=== PATIENT | female | born 2000 | race Caucasian/White ===

== ENCOUNTER 2020-10-19 02:15 | Observation (INO) | payer MEDICAID, SELFPAY ==
[2020-10-19 03:31] VITALS: BP 105/62; PULSE 82
[2020-10-19 03:46] VITALS: BP 110/50; PULSE 79
--- NOTE | 2020-10-19 04:54 | LDADM ---
This patient, Jael Douglass, was admitted to Labor/Delivery/Recovery 106 on 10/19/20 at 02:15. Plans for labor, pain management and were discussed with patient. Patient/family oriented to hospital policies and general routines including ID bracelet, bed and alarms, visiting hours, pain management, procedures, bathroom and other care routines, personal items, smoking policy, room service/diet and guest tray routines, security routines, and visiting hours. Patient/Family are encouraged to report perceived risks to care and to ask questions if they do not understand what they are told or what they should do. See OBIX for further documentation.
--- NOTE | 2020-11-08 10:37 | PM.OBTRLD ---
OB - Triage/Final Diagnosis Visit Information Comments/Additional reasons for admission: I have assessed the risk for this patient, Jael Douglass, and determined that she would benefit from observation care. Final Diagnosis (1) False labor: Code(s): O47.9 - False labor, unspecified Status: Acute
== END 2020-10-19 05:07 | disposition home or self-care (01) ==
PROVIDERS: Admitting Provider Obstetrics & Gynecology; Visit Provider Obstetrics & Gynecology
DX: O47.1 False labor at or after 37 completed weeks of gestation (principal); Z3A.38 38 weeks gestation of pregnancy
CPT/HCPCS: G0378; G0379

== ENCOUNTER 2020-10-24 06:00 | Inpatient (IN) | payer MEDICAID, SELFPAY ==
[2020-10-24] VITALS (78 sets, daily range): BP systolic 73–150; BP diastolic 31–86; PULSE 66–204; RESP 16; TEMP 36.4–36.9; O2SAT 91–100
--- NOTE | 2020-10-24 06:00 | LDADM ---
This patient, Jael Douglass, was admitted to Labor/Delivery/Recovery 103 on 10/24/20 at 06:00. Plans for labor, pain management and were discussed with patient. Patient/family oriented to hospital policies and general routines including ID bracelet, bed and alarms, visiting hours, pain management, procedures, bathroom and other care routines, personal items, smoking policy, room service/diet and guest tray routines, infant security routines, and visiting hours. Patient/Family are encouraged to report perceived risks to care and to ask questions if they do not understand what they are told or what they should do. See OBIX for further documentation.
[2020-10-24 07:10] LABS: Basophils Percent Auto 0.2 % (0.2-1.2); Eosinophils Absolute Auto 0.1 K/mm3 (0-0.3); Eosinophils Percent Auto 0.8 % (0-4.4); Hematocrit 35.8 % (37.0-47.0); Hemoglobin 11.8 g/dL (12.0-15.0); Immature Granulocyte Absolute 0.03 K/mm3 (0.00-0.031); Immature Granulocyte Percent A 0.3 % (0-0.5); Lymphocytes Absolute Auto 2.27 K/mm3 (0.9-3.2); Lymphocytes Percent Auto 23.1 % (18.3-44.2); Mean Corpuscular Hemoglobin 28.8 pg (26-34); Mean Corpuscular Volume 87.3 fl (80-100); Mean Platelet Volume 11.7 fl (7.4-10.4); Monocytes Absolute Auto 0.6 K/mm3 (0.1-0.6); Monocytes Percent Auto 5.9 % (2.6-8.5); Neutrophils Absolute Auto 6.8 K/mm3 (1.3-6.7); Neutrophils Percent Auto 69.7 % (45.5-73.1); Platelet Count Result 179 k/mm3 (150-375); Red Cell Distribution Width 14.5 % (11.5-14.5); White Blood Count 9.8 K/mm3 (4.5-10.0)
[2020-10-24] MEDS: OXYTOCIN 30 UNITS/NS 500 ML 30 UNITS/500 ML BAG IV CONT (07:13)
[2020-10-24] MEDS: LACTATED RINGERS 1,000 ML 125 ML IV CONT ×2 (07:14→10:06)
--- NOTE | 2020-10-24 07:26 | WPDOBADMIT ---
Obstetrics - Admit Note Admission Note: record reviewed. No pertinent additions to the history and/or any subsequent changes in the physical findings that are not consistent with the expected course of the were found. EIL SVE /-2/ AROM moderate amount of clear odorless fluid Additions to the history and/or subsequent changes in the physical findings follow. None.
--- NOTE | 2020-10-24 07:29 | P.PNAN_ITS ---
Anes - Eval Pre Procedure Procedure: labor epidural Date/Time: 10/24/20 07:29 Surgeon: ofelia Preop Diagnosis: pain during labor Pre Op Diagnosis: IOL Patient Data Age: 20 Gender: F Height: Weight: Last Vital Signs Pulse 88 10/24/20 07:02 BP 122/70 10/24/20 07:02 Allergies Allergy/AdvReac Type Severity Reaction Status Date / Time latex Allergy Intermediate HIVES,SWELL Verified 12/01/18 14:38 ING ibuprofen Allergy Unknown Hives / Verified 12/01/18 14:38 Red Face Home Medications Medication Instructions Recorded Confirmed Type PNV cmb#95-ferrous fumarate-FA 1 tablet PO DAILY 10/09/20 10/09/20 History [] Laboratory Tests 10/24/20 10/24/20 06:50 06:50 WBC 9.8 K/mm3 K/mm3 (4.5-10.0) RBC 4.10 M/mm3 L M/mm3 (4.2-5.4) Hgb 11.8 g/dL L g/dL (12.0-15.0) Hct 35.8 % L % (37.0-47.0) MCV 87.3 fl fl (80-100) MCH 28.8 pg pg (26-34) MCHC 33.0 g/dl g/dl (32-36) RDW 14.5 % % (11.5-14.5) Plt Count 179 k/mm3 k/mm3 (150-375) MPV 11.7 fl H fl (7.4-10.4) Immature Gran % (Auto) 0.3 % % (0-0.5) Neut % (Auto) 69.7 % % (45.5-73.1) Lymph % (Auto) 23.1 % % (18.3-44.2) [place] % (Auto) 5.9 % % (2.6-8.5) Eos % (Auto) 0.8 % % (0-4.4) Baso % (Auto) 0.2 % % (0.2-1.2) Lymph # (Auto) 2.27 K/mm3 K/mm3 (0.9-3.2) [place] # (Auto) 0.6 K/mm3 K/mm3 (0.1-0.6) Eos # (Auto) 0.1 K/mm3 K/mm3 (0-0.3) Baso # (Auto) 0.0 K/mm3 K/mm3 (0.0-0.1) Abs Immat Gran (auto) 0.03 K/mm3 K/mm3 (0.00-0.031) Absolute Neuts (auto) 6.8 K/mm3 H K/mm3 (1.3-6.7) Absolute Nucleated RBC 0.0 K/mm3 K/mm3 (0.0-0.012) Nucleated RBC % 0.0 % % (0.0-0.2) RPR Pending Patient hx anesthesia problems: none Family hx anesthesia problems: none PMFSH Past Medical History Medical History (Updated 10/24/20 @ 07:30 by Debra Mitchell CRNA) IUP (intrauterine ), incidental Family History Family History Mother Hodgkins lymphoma Social History Social History Smoking status: Former smoker Substance use: never Gender identity (if verbalized by the patient): Female Spiritual care concerns: No Exam Day of Procedure 10/24/20 07:29
[2020-10-24 09:38] LABS: Amphetamine Screen Urine Negative (Negative); Barbiturate Screen Urine Negative (Negative); Benzodiazepines Screen Urine Negative (Negative); Cannabinoid Screen Urine Negative (Negative); Cocaine Screen Urine Negative (Negative); Methadone Screen Urine Negative (Negative); Opiate Screen Urine Negative (Negative); Phencyclidine Screen Urine Negative (Negative)
--- NOTE | 2020-10-24 12:55 | PM.OBPRVD ---
OB - Delivery Note Procedure Delivery date: 10/24/20 Procedure: vaginal delivery Intrapartal events: None Induction method: AROM and per pitocin protocol Delivery monitor: external FHT and external uterine Route of delivery: Laceration Description: Perineal - 1st Degree Quantitative Blood Loss (ml): 201 Anesthesia type: Epidural Disposition: other [place] Baby Date of : 10/24/20 Time of : 12:43 Weeks of gestation at delivery: 39 Infant gender: Male Weight (pounds): 8 Weight (ounces): 1 presentation: vertex position: Left Occiput Anterior Placenta delivery description: Spontaneous cord vessel description: 3 Vessels, Clamped/Cut and Delayed Cord Clamping score one minute: 9 score five minutes: 9 Narrative: mother and baby skin to skin in stable condition
[2020-10-24] MEDS: OXYTOCIN 30 UNITS/NS 500 ML 30 UNITS/500 ML BAG 125 UNITS IV CONT (12:58)
--- NOTE | 2020-10-24 15:20 | OBPPTRN ---
Patient transferred to post room #284 via wheelchair. Support person present. Oriented to unit, room, information board, rooming in, admission packet and security measures. Patient verbalizes understanding.
[2020-10-24] MEDS: ACETAMINOPHEN 325 MG TABLET 650 MG PO (21:56)
[2020-10-25] MEDS: ACETAMINOPHEN 325 MG TABLET 650 MG PO ×2 (05:14→12:46)
[2020-10-25 05:15] VITALS: BP 100/71; PULSE 79; RESP 16; TEMP 36.2; O2SAT 100
[2020-10-25 05:45] LABS: Hematocrit 35.9 % (37.0-47.0); Hemoglobin 11.6 g/dL (12.0-15.0)
--- NOTE | 2020-10-25 07:18 | PM.OBPNVD ---
OB - PN: Subj Subjective Date/time seen: 10/25/20 07:18 Patient comments: no complaints baby status: doing well OB - PN: Obj Data Labs CBC & Chem 7: 10/25/20 05:20 Labs: Laboratory Results - last 24 hr 10/24/20 10/24/20 10/25/20 06:50 08:54 05:20 Hgb 11.6 L Hct 35.9 L Urine Opiates Screen Negative Urine Methadone Screen Negative Ur Barbiturates Screen Negative Ur Phencyclidine Scrn Negative Ur Amphetamine Screen Negative U Benzodiazepines Scrn Negative Urine Cocaine Screen Negative U Cannabinoids Screen Negative Blood Type O Positive Antibody Screen Negative OB - PN A/P Plan day: 1 Plan: routine care Time Spent With Patient Time: Total time spent is greater than 50% in coordination of care (as documented) at patient's floor/unit and/or counseling patient: Time with patient: less than 15 minutes Review of Systems Review of Systems: All systems reviewed & are unremarkable except as noted in HPI and below Exam Narrative: Exam Narrative: Fundus firm and vaginal flow controlled. No lower ext redness, warmth, or edema. Negative homans. Const: General: comfortable Chest: Breast/axilla inspection: normal inspection of the breasts Resp: Effort & Inspection: normal respiratory effort Cardio: Rate: regular rate GI: GI Palp: Yes Soft to palpation Psych: Appearance: grossly normal Affect: normal affect Attitude: cooperative Thought content: Yes Normal thought content present Judgement: Good judgement present (Psych)
--- NOTE | 2020-10-25 07:19 | P.DS_ITS ---
DS: Admitting Diagnosis Admitting Diagnosis Admitting Diagnosis: Induction of Labor OB - DS: Summary OB Procedures : None OB Procedures Intrapartum: Spontaneous Vag Delivery OB Procedures: : None Time Spent with Patient Time attestation: Total time spent providing and/or coordinating discharge services: DS: Data Data Completed and Pending Labs on day of discharge: Labs from last 24 hours 10/25/20 10/24/20 10/24/20 05:20 08:54 06:50 Hgb 11.6 L Hct 35.9 L Urine Opiates Screen Negative Urine Methadone Screen Negative Ur Barbiturates Screen Negative Ur Phencyclidine Scrn Negative Ur Amphetamine Screen Negative U Benzodiazepines Scrn Negative Urine Cocaine Screen Negative U Cannabinoids Screen Negative Blood Type O Positive Antibody Screen Negative Discharge Plan Discharge Attending physician on discharge: Nadia Smith Discharging Clinician: Heather Nichols Patient Disposition: Home, Self-Care Activity: pelvic rest Diet: as tolerated Patient Instructions: Antibiotic Form Stand Alone Forms: General Discharge Information Follow-up/Referrals: Nadia Smith CNM [Certified Nurse Social Welfare Research Worker] - Discharge Medications: Continued PNV cmb#95-ferrous fumarate-FA [] 28 mg iron- 800 mcg Tablet 1 tablet PO DAILY RF: 0 Date of admission: 10/24/20 06:00 Primary Care Provider: PHYSICIAN,COMMUNITY BOARD MEMBER Admitting Provider: Sebastian Duong Attending physician on admission: Sebastian Duong Condition: Stable
[2020-10-25 08:20] VITALS: BP 111/55; PULSE 73; RESP 16; TEMP 36.8; O2SAT 99
[2020-10-25] MEDS: DOCUSATE SODIUM 100 MG CAPSULE PO (09:05)
[2020-10-25] MEDS: MULTIVIT/MIN/PREN/FOL AC/IRON TABLET 1 TAB PO (09:05)
[2020-10-25 12:30] VITALS: BP 126/54; PULSE 75; RESP 16; TEMP 36.4; O2SAT 99
[2020-10-25 14:00] VITALS: BP 115/81; PULSE 78
--- NOTE | 2020-10-25 14:31 | PC.NURSE ---
Patient discharged home to awaiting vehicle. Discharge instructions given to patient and all questions answered.
[2020-10-27 11:30] LABS: Rapid Plasma Reagin Non-Reactive (NonReactive)
== END 2020-10-25 14:28 | disposition home or self-care (01) | DRG 560 ==
LOC: ANHLDR 06:05 → ANHOB2 15:23
PROVIDERS: Advanced Practice Midwife; Admitting Provider Obstetrics & Gynecology; Visit Provider Obstetrics & Gynecology
DX: O70.0 First degree perineal laceration during delivery (principal); Z3A.39 39 weeks gestation of pregnancy; Z37.0 Single live birth
CPT/HCPCS: 36415; 80307; 85014; 85018; 85025; 86592; 86850; 86900; 86901; A9270; J2590; J2795; J7120

== ENCOUNTER → 2021-02-21 00:48 | Outpatient (CLI) | payer OTHER, SELFPAY ==
[2021-02-21 22:45] LABS: SARS-CoV-2 RNA PCR Negative
== END ==
PROVIDERS: Visit Provider Obstetrics & Gynecology
DX: Z01.812 Encounter for preprocedural laboratory examination (principal); Z20.822 Contact with and (suspected) exposure to COVID-19
CPT/HCPCS: C9803; U0003; U0005

== ENCOUNTER 2021-02-25 02:24 | Day surgery (SDC) | payer OTHER, SELFPAY ==
[2021-01-23 08:54] VITALS: BMI 40.9
--- NOTE | 2021-02-24 09:13 | WPDANESEPPF ---
Anes - Initial Pre Proc Eval Procedure: Operation Date: 02/25/21 10:30 Proposed Procedures p Laparoscopic Bilateral Salpingectomy - Sebastian Duong MD Date/Time: 02/24/21 09:13 Surgeon: Sebastian Duong MD Pre Op Diagnosis: female sterilization Patient Data Age: 20 Gender: F Height: 1.57 m Weight: 101.6 kg Allergies Allergy/AdvReac Type Severity Reaction Status Date / Time latex Allergy Intermediate HIVES,SWELL Verified 02/25/21 08:43 ING ibuprofen Allergy Unknown Hives / Verified 02/25/21 08:43 Red Face Home Medications Medication Instructions Recorded Confirmed Type albuterol 90 mcg INHALATION PRN 01/23/21 History albuterol sulfate 1.25 mg INHALATION Q4H PRN 01/23/21 02/25/21 History txhgypsrjozl-Qp-nrnu-minerals 1 tablet PO DAILY 01/23/21 02/25/21 History [Women's Daily Multivitamin] Patient hx anesthesia problems: none Family hx anesthesia problems: none PMFSH Past Medical History Medical History (Updated 02/24/21 @ 09:14 by Baudilio Lozada DO) Anxiety Asthma IUP (intrauterine ), incidental Family History Family History Mother Hodgkins lymphoma Social History Social History Smoking packs per day: 1 Smoking cigarettes per day: 20.0 Years smoked: 7 Smoking pack-years: 7.00 Smoking status: Former smoker Tobacco type: cigarettes and e-cigarettes/vaping Second hand tobacco smoke exposure: No Smoking end date: 10/06/20 Additional smoking assessment comments: vaping only now and contains nicotine Alcohol intake: never Substance use: never Substance use type: does not use Living arrangements: with family Gender identity (if verbalized by the patient): Female Spiritual care concerns: No Anes - Eval Final PreProcedure Day of Procedure 02/24/21 09:13 Patient weight: morbidly obese Heart: regular rate and rhythm Lungs: clear to auscultation and normal air movement Airway: Mallampati scale class II and other (loose back bottom right molar) Neurological: alert and oriented Last oral intake: >/= 8 hours ASA classification: III Emergent: no Anesthetic plan: proceed Anesthesia type and monitoring: general ETT and standard monitoring Informed Consent: The patient's anesthetic plan and its attendant risks and benefits were discussed with the patient/family/POA. Questions were solicited and answers provided to the satisfaction of the patient/family/POA.
[2021-02-25] VITALS (10 sets, daily range): BP systolic 93–117; BP diastolic 41–62; PULSE 54–84; RESP 12–18; TEMP 36.6; O2SAT 94–100
[2021-02-25] MEDS: LACTATED RINGERS 1,000 ML 30 ML IV CONT ×2 (09:03→12:08)
[2021-02-25] MEDS: ACETAMINOPHEN 500 MG TABLET 1000 MG PO (09:04)
--- NOTE | 2021-02-25 10:12 | WPDHPUPDATE1 ---
History and Physical Update Update Date/Time: 02/25/21 10:12 History and Physical has been reviewed, including an updated exam of the patient. There are NO changes in the patient's condition. Risks, benefits, and alternatives have been discussed and questions answered. Patient agrees to proceed with procedure.
--- NOTE | 2021-02-25 10:12 | SUR.PREOP ---
updated patient on possible 45-60 min long surgery delay.
--- NOTE | 2021-02-25 10:17 | W.PM.PROC2 ---
Procedure Note - Detailed Date of Procedure 02/25/21 Pre-op Diagnosis female sterilization Post-op Diagnosis same Procedure Performed Laparoscopic bilateral salpingectomy Surgeon Sebastian Duong MD Anesthesia general Indications Unwanted fertility Findings Normal pelvic anatomy Description of Procedure The patient was taken the operating room. She was prepped and draped in the dorsal lithotomy position after induction of general anesthesia. A 5 mm skin incision was made in the left upper quadrant of the abdominal skin. A 5 mm trocar was inserted the intra-abdominal cavity under direct visualization of the scope. Pneumoperitoneum was achieved. A 5 mm trocar was inserted in the left lower quadrant identical fashion. A 5 mm infraumbilical trocar was inserted in identical fashion as well. The bilateral fallopian tubes were removed. This was done by using a LigaSure cautery. The mesosalpinx adjacent to the tube was cauterized transected with LigaSure. This was initiated in the area the ovary and in a stepwise fashion moved medially to the area of the cornu of the uterus. Once there the fallopian tube was cauterized and transected. This was done in identical fashion on each side. The fallopian tubes were taken out through the left lower quadrant trocar site. The pneumoperitoneum was reduced. The trocars removed. The skin was closed with subcuticular 4 Monocryl and covered with Dermabond. She was taken to cover stable condition. Sponge lap and needle counts were correct x2. Estimated Blood Loss 5 Drains No Packing No Pathology yes Complications No immediate complications Condition stable Disposition PACU
[2021-02-25] MEDS: fentaNYL CITRATE INJ (*CRX) 100 MCG/2 ML VIAL 25 MCG IV PUSH ×4 (12:18→12:52)
[2021-02-25] MEDS: oxyCODONE HCL (*CRX) 5 MG TAB IR PO (13:59)
[2021-02-25] MEDS: ONDANSETRON INJ 4 MG/2 ML VIAL IV PUSH (14:11)
== END 2021-02-25 14:50 | disposition home or self-care (01) ==
PROVIDERS: Visit Provider Obstetrics & Gynecology
PROC: (CPT 49320; principal; 2021-02-25 10:30)
DX: Z30.2 Encounter for sterilization (principal); J45.909 Unspecified asthma, uncomplicated; Z79.51 Long term (current) use of inhaled steroids; F17.290 Nicotine dependence, other tobacco product, uncomplicated; E66.01 Morbid (severe) obesity due to excess calories; Z68.41 Body mass index [BMI] 40.0-44.9, adult
CPT/HCPCS: 58661; 88302; A9270; J1170; J2250; J2405; J2704; J2710; J3010; J7030; J7120